=== PATIENT | male | born 1945 | race Native Hawaiian/Other Pacific Islander ===

== ENCOUNTER 2019-03-14 09:57 | Emergency (ER) | payer OTHER ==
[~2019-03-14] VITALS: Ht 182.9 cm; Wt 117.9 kg
[2019-03-14 10:44] LABS: PLATELET COUNT 221 K/uL (142-355)
[2019-03-14 10:55] LABS: POTASSIUM 3.7 mmol/L (3.6-5.2); SODIUM 138 mmol/L (136-145)
[2019-03-14 13:36] VITALS: BP 156/87; TEMP 98.1
== END 2019-03-14 13:36 | disposition home or self-care (01) ==
LOC: ED 09:57
PROVIDERS: Emergency Medicine
DX: R07.89 Other chest pain (principal)
CPT/HCPCS: 36415; 80053; 82550; 83690; 84484; 85027; 93005; 96374; 99284; J2405

== ENCOUNTER 2020-10-22 12:40 | Outpatient (CLI) | payer OTHER | END 2020-10-22 21:04 | disposition home or self-care (01) | LOC: RAD 12:40 | PROVIDERS: ATTEND Nurse Practitioner Family | DX: M25.562 Pain in left knee (principal) ==

== ENCOUNTER 2021-01-10 09:34 | Outpatient (CLI) | payer OTHER | END 2021-01-10 19:23 | disposition home or self-care (01) | LOC: LABW 09:34 | PROVIDERS: ATTEND Podiatrist | DX: B35.1 Tinea unguium (principal) | CPT/HCPCS: 36415; 84450; 84460 ==

== ENCOUNTER 2023-01-02 07:47 | Outpatient (CLI) | payer OTHER | END 2023-01-02 18:52 | disposition home or self-care (01) | LOC: RAD 07:47 | PROVIDERS: ATTEND Nurse Practitioner Family | DX: Z13.820 Encounter for screening for osteoporosis (principal) ==